=== PATIENT | female | born 1945 | race Two or more races ===

== ENCOUNTER 2018-01-30 15:32 | Outpatient (CLI) | payer OTHER | END 2018-01-30 15:34 | disposition home or self-care (01) | LOC: RAD 15:32 | DX: M25.512 Pain in left shoulder (principal) ==

== ENCOUNTER 2018-03-18 12:47 | Outpatient (CLI) | payer OTHER | END 2018-03-18 15:00 | disposition home or self-care (01) | LOC: MRI 12:47 | DX: M25.112 Fistula, left shoulder (principal) | CPT/HCPCS: 73221 ==

== ENCOUNTER → 2018-03-18 | Outpatient (CLI) | payer OTHER | END | disposition home or self-care (01) | LOC: NUCLEAR 11:41 | DX: M81.0 Age-related osteoporosis without current pathological fracture (principal) ==

== ENCOUNTER → 2018-03-18 | Outpatient (CLI) | payer OTHER | END | disposition home or self-care (01) | LOC: NUCLEAR 11:00 | DX: M81.0 Age-related osteoporosis without current pathological fracture (principal) ==

== ENCOUNTER 2018-06-04 11:24 | Outpatient (CLI) | payer OTHER | END 2018-06-04 11:33 | disposition home or self-care (01) | LOC: MRI 11:24 | DX: R41.82 Altered mental status, unspecified (principal) | CPT/HCPCS: 70551 ==

== ENCOUNTER 2020-03-05 12:26 | Emergency (ER) | payer OTHER ==
[~2020-03-05] VITALS: Ht 157.5 cm; Wt 60.8 kg
[2020-03-05] MEDS ORDERED: SYNTHROID50 MCG PO (12:57)
[2020-03-05] MEDS ORDERED: LIPITOR20 MG PO (12:57)
== END 2020-03-05 17:12 | disposition home or self-care (01) ==
LOC: ER 12:26
DX: M94.0 Chondrocostal junction syndrome [Tietze] (principal); R07.89 Other chest pain; F41.1 Generalized anxiety disorder; F43.0 Acute stress reaction

== ENCOUNTER 2020-11-07 16:01 | Outpatient (CLI) | payer OTHER ==
[~2020-11-07 16:01] MED LIST: LIPITOR20 MG PO; SYNTHROID50 MCG PO
== END 2020-11-07 16:14 | disposition home or self-care (01) ==
LOC: RAD 16:01
PROVIDERS: ATTEND Physical Medicine & Rehabilitation
DX: M54.6 Pain in thoracic spine (principal); M17.0 Bilateral primary osteoarthritis of knee; M54.5 Low back pain

== ENCOUNTER 2020-11-14 13:09 | Outpatient (CLI) | payer OTHER | END 2020-11-14 13:10 | disposition home or self-care (01) | LOC: NUCLEAR 13:09 | DX: M81.0 Age-related osteoporosis without current pathological fracture (principal) ==

== ENCOUNTER → 2020-11-21 | Outpatient (CLI) | payer OTHER | END | disposition home or self-care (01) | LOC: MRI 14:52 | PROVIDERS: ATTEND Psychiatry & Neurology Neurology | DX: G30.8 Other Alzheimer's disease (principal) | CPT/HCPCS: 70551 ==

== ENCOUNTER 2020-11-30 10:00 | Outpatient (CLI) | payer OTHER | END 2020-11-30 10:15 | disposition home or self-care (01) | LOC: PPH VACUNA 10:00 | PROVIDERS: ATTEND Emergency Medicine Pediatric Emergency Medicine | DX: Z23 Encounter for immunization (principal) ==

== ENCOUNTER 2020-12-05 15:24 | Outpatient (CLI) | payer OTHER | END 2020-12-05 15:33 | disposition home or self-care (01) | LOC: RAD 15:24 | PROVIDERS: ATTEND Physical Medicine & Rehabilitation | DX: M19.041 Primary osteoarthritis, right hand (principal); M19.042 Primary osteoarthritis, left hand; M25.511 Pain in right shoulder ==

== ENCOUNTER → 2021-02-16 | Outpatient (CLI) | payer OTHER | END | disposition home or self-care (01) | LOC: SONOGRAMA 10:09 | PROVIDERS: ATTEND Obstetrics & Gynecology | DX: N20.2 Calculus of kidney with calculus of ureter (principal) ==

== ENCOUNTER 2021-03-14 08:46 | Outpatient (CLI) | payer OTHER | END 2021-03-14 08:51 | disposition home or self-care (01) | LOC: TOM 08:46 | PROVIDERS: ATTEND Internal Medicine Gastroenterology | DX: R19.09 Other intra-abdominal and pelvic swelling, mass and lump (principal) | CPT/HCPCS: 74177; Q9965 ==

== ENCOUNTER 2021-08-22 13:13 | Outpatient (CLI) | payer OTHER | END 2021-08-22 13:21 | disposition home or self-care (01) | LOC: MRI 13:13 | PROVIDERS: ATTEND Physical Medicine & Rehabilitation | DX: M54.50 Low back pain, unspecified (principal); M54.16 Radiculopathy, lumbar region | CPT/HCPCS: 72148 ==

== ENCOUNTER 2021-09-20 12:16 | Outpatient (CLI) | payer OTHER | END 2021-09-20 12:23 | disposition home or self-care (01) | LOC: RAD 12:16 | PROVIDERS: ATTEND Physical Medicine & Rehabilitation | DX: M17.12 Unilateral primary osteoarthritis, left knee (principal) ==

== ENCOUNTER → 2022-04-10 | Outpatient (CLI) | payer OTHER | END | disposition home or self-care (01) | LOC: MRI 11:17 | DX: D33.3 Benign neoplasm of cranial nerves (principal) | CPT/HCPCS: 70551 ==

== ENCOUNTER → 2022-04-21 | Emergency (ER) | payer OTHER ==
[~2022-04-21] VITALS: Ht 157.5 cm; Wt 59.4 kg
== END | disposition home or self-care (01) ==
LOC: ER 17:43
DX: H00.016 Hordeolum externum left eye, unspecified eyelid (principal); Z88.8 Allergy status to other drugs, medicaments and biological substances

== ENCOUNTER 2022-05-16 15:03 | Outpatient (CLI) | payer OTHER | END 2022-05-16 15:09 | disposition home or self-care (01) | LOC: RAD 15:03 | PROVIDERS: ATTEND Physical Medicine & Rehabilitation | DX: M54.2 Cervicalgia (principal) ==

== ENCOUNTER 2022-07-03 12:48 | Outpatient (CLI) | payer OTHER | END 2022-07-03 12:59 | disposition home or self-care (01) | LOC: MAMO-SONO 12:48 | DX: Z12.31 Encounter for screening mammogram for malignant neoplasm of breast (principal); N60.01 Solitary cyst of right breast; N60.02 Solitary cyst of left breast ==

== ENCOUNTER 2022-08-02 09:23 | Outpatient (CLI) | payer OTHER | END 2022-08-02 09:27 | disposition home or self-care (01) | LOC: MRI 09:23 | PROVIDERS: ATTEND Otolaryngology Otolaryngology/Facial Plastic Surgery | DX: H61.23 Impacted cerumen, bilateral (principal); J31.0 Chronic rhinitis; R09.81 Nasal congestion; J38.01 Paralysis of vocal cords and larynx, unilateral | CPT/HCPCS: 70553; Q9965 ==

== ENCOUNTER 2022-08-09 09:14 | Outpatient (CLI) | payer OTHER | END 2022-08-09 09:18 | disposition home or self-care (01) | LOC: TOM 09:14 | PROVIDERS: ATTEND Otolaryngology Otolaryngology/Facial Plastic Surgery | DX: H61.23 Impacted cerumen, bilateral (principal); J31.0 Chronic rhinitis; R09.81 Nasal congestion; J38.01 Paralysis of vocal cords and larynx, unilateral | CPT/HCPCS: 70492; 71260; Q9965 ==

== ENCOUNTER 2022-09-12 08:45 | Outpatient (CLI) | payer OTHER | END 2022-09-12 09:03 | disposition home or self-care (01) | LOC: SONOGRAMA 08:45 | PROVIDERS: ATTEND Internal Medicine Gastroenterology | DX: R10.84 Generalized abdominal pain (principal) ==

== ENCOUNTER 2023-01-09 13:45 | Outpatient (CLI) | payer OTHER | END 2023-01-09 13:46 | disposition home or self-care (01) | LOC: NUCLEAR 13:45 | PROVIDERS: ATTEND Internal Medicine Rheumatology | DX: M81.0 Age-related osteoporosis without current pathological fracture (principal) ==

== ENCOUNTER 2023-04-08 18:30 | Emergency (ER) | payer OTHER ==
[~2023-04-08] VITALS: Ht 157.5 cm; Wt 59.4 kg
[2023-04-08] MEDS ORDERED: DICLOFENAC POTA50 MG PO (18:57)
[2023-04-08] MEDS ORDERED: METHYLPREDNISOLONE SOD SUCC 125 MG VIAL IM STA (20:23)
[2023-04-08] MEDS ORDERED: CEFTRIAXONE SODIUM 1,000 MG VIAL IM STA (20:23)
[2023-04-08] MEDS ORDERED: GUAIFENESIN 200 MG/10 ML BLIST.PACK PO STA (20:24)
[2023-04-08 21:01] LABS: HEMATOCRIT 33.3 % (36.0-45.00); HEMOGLOBIN 11.4 g/dL (12.0-15.00); MEAN CELL VOLUME 101.9 fL (80.00-100.00); MEAN CORPUSCULAR HEMOGLOBIN 34.9 pg (27.00-32.0); MEAN CORPUSCULAR HGB CONC 34.3 g/dl (32.0-36.0); PLATELET COUNT 184 K/uL (150-450); RED BLOOD COUNT 3.27 M/uL (4.00-6.00); RED CELL DISTRIBUTION WIDTH 12.5 % (11.5-14.5)
[2023-04-09 08:36] LABS: ABG PH 7.432 (7.35-7.45); ABG PO2 90.7 mmHg (80-100); ABG pCO2 33.3 mmHg (35-45); BASE EXCESS -1.7 mmol/l; BICARBONATE 21.8 mmol/l (23-25); SaO2 97.2 %; Tco2 22.8 mmol/l
[2023-04-09 08:37] LABS: allen test SATISFACTORY; o2 21 %; puncture site RADIAL RIGHT
== END 2023-04-08 21:53 | disposition home or self-care (01) ==
LOC: ER 18:30
PROVIDERS: General Practice
DX: R05.8 Other specified cough (principal); Z88.8 Allergy status to other drugs, medicaments and biological substances; Z20.822 Contact with and (suspected) exposure to COVID-19
CPT/HCPCS: 36415; 71046; 82803; 96372; 99283; J0696; J2920

== ENCOUNTER 2024-06-04 15:17 | Outpatient (CLI) | payer OTHER ==
[~2024-06-04 15:17] MED LIST changes: +DICLOFENAC POTA50 MG PO
== END 2024-06-04 15:22 | disposition home or self-care (01) ==
LOC: SONOGRAMA 15:17
PROVIDERS: ATTEND Surgery
DX: N60.11 Diffuse cystic mastopathy of right breast (principal); N60.12 Diffuse cystic mastopathy of left breast